=== PATIENT | female | born 1955 | race Caucasian/White ===

== ENCOUNTER 2017-05-11 09:46 | Day surgery (SDC) | payer OTHER ==
--- NOTE | 2017-04-30 20:32 | HP ---
CC: Dr. Dania Messina * ADMITTING HISTORY AND PHYSICAL: DATE OF ADMISSION: 05/11/17 ADMITTING DIAGNOSES: 1. Right renal calculus. 2. Right hydronephrosis. 3. 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 PLANNED PROCEDURE: Shockwave lithotripsy of right renal calculus, right retrograde, and right stent insertion. SURGEON: Jigar Castellanos MD HISTORY OF PRESENT ILLNESS: Lexie Casanova is a 62-year-old lady who I have been following for the last few years for what appears to be a partial right ureteropelvic junction obstruction. She was recently noted to have a 5-mm calculus in the area of the right ureteropelvic junction with mild right hydronephrosis. PAST MEDICAL HISTORY: Significant for: 1. History of high cholesterol. 2. Hypothyroidism. MEDICATIONS ON ADMISSION: 1. Pravastatin 20 mg a day. 2. Synthroid 0.125 mg daily. ALLERGIES: No known drug allergies. PHYSICAL EXAMINATION GENERAL: Reveals a pleasant healthy-appearing lady. VITAL SIGNS: Blood pressure is 120/80, pulse 77 per minute and regular, oxygen saturation 98% on room air. LUNGS: Clear bilaterally. CARDIOVASCULAR EXAM: Regular rate and rhythm. S1, S2. ABDOMEN: Soft with mild right flank tenderness. IMPRESSION: A 62-year-old lady with a partial right ureteropelvic junction obstruction and a 5-mm calculus in the right renal pelvis with mild right hydronephrosis. PLAN: Planned procedure is shockwave lithotripsy, right renal calculus, right retrograde and right stent insertion. [id number] #: [id number] MTDD
[~2017-05-11 09:46] MED LIST: Buffered Lidocaine 0.9% SYRIN* 5 ML/SYR SYRINGE INTRADERM ONE; Dexamethasone IV* 4 MG/ML 1 ML (4 MG) IV SLOW PU ONE; Famotidine IV* 10 MG/ML 2 ML (20 mg) IV ONE
[2017-05-11] MEDS ORDERED: cefTRIAXone(*) 2 GM ADDV.VIAL IVPB ONE (10:07)
[2017-05-11] MEDS ORDERED: Dexamethasone IV* 4 MG/ML 1 ML (4 MG) ONE (10:07)
[2017-05-11] MEDS ORDERED: Famotidine IV* 10 MG/ML 2 ML (20 mg) ONE (10:07)
[2017-05-11] MEDS ORDERED: Buffered Lidocaine 0.9% SYRIN* 5 ML/SYR SYRINGE ONE (10:08)
--- NOTE | 2017-05-11 10:17 | RAD ---
Indication: Preop. Flat plate of the abdomen demonstrates calcifications overlying the midportion of the right kidney. Left kidney is unremarkable. Compared to previous exam of April 24, 2017 this is unchanged. IMPRESSION: Calcification overlying the mid pole right kidney.
[2017-05-11] MEDS ORDERED: fentaNYL* 50 MCG/ML 2 ML VIAL (100 MCG VIAL) ONE ×2 (11:11→13:50)
[2017-05-11] MEDS ORDERED: Midazolam* 1 MG/ML 2 ML VIAL (2 MG) ONE (11:11)
[2017-05-11] MEDS ORDERED: Ondansetron INJ* 2 MG/ML VIAL ONE ×2 (11:18→12:22)
[2017-05-11] MEDS ORDERED: Iohexol 180 (CONTRAST) 10 ML SDV IV ONE (12:10)
[2017-05-11] MEDS ORDERED: EPHEDrine (Pressors)* 50 MG/ML VIAL ONE (12:22)
[2017-05-11] MEDS ORDERED: Propofol* 10 MG/ML 20 ML BTL IV PUSH ONE (12:22)
[2017-05-11] MEDS ORDERED: DiMENhydriNATE IV* 50 MG/ML VIAL IV PUSH PRN (12:39)
[2017-05-11] MEDS ORDERED: Naloxone* 0.4 MG/ML 1 ML VIAL IV PRN (12:39)
[2017-05-11] MEDS ORDERED: fentaNYL* 50 MCG/ML 2 ML VIAL (100 MCG VIAL) IV PRN (12:39)
[2017-05-11] MEDS ORDERED: oxyCODONE/Acetamin 5/325 MG* TAB ONE (14:27)
[2017-05-11 15:37] VITALS: BP 133/57
--- NOTE | 2017-05-12 06:31 | OP ---
CC: Dania Messina MD * DATE OF OPERATION: 05/11/17 - [facility] DATE OF : 55 SURGEON: Jigar Castellanos MD ANESTHESIOLOGIST: Dr. Perry. ANESTHESIA: General. PRE-OP DIAGNOSES: 1. Right hydronephrosis. 2. Right renal calculus. 3. Partial right ureteropelvic junction obstruction. POST-OP DIAGNOSES: 1. Right hydronephrosis. 2. Right renal calculus. 3. Partial right ureteropelvic junction obstruction. OPERATIVE PROCEDURE: 1. Shockwave lithotripsy, right renal calculus. 2. Cystoscopy, right retrograde pyelogram, right ureteral balloon dilatation and right stent insertion. INDICATIONS: Lexie Casanova is a 62-year-old lady who I had been following for what appears to be a partial right ureteropelvic junction obstruction. She was recently evaluated and noted to have a 5 mm calculus in the right renal pelvis and is now being brought in for management of both the renal calculus and the partial ureteropelvic junction obstruction. COMPLICATIONS: None. STENT USED: A 6-Brazilian stent, right ureter. OPERATIVE FINDINGS: 1. Right renal calculus. 2. Right hydronephrosis and dilated right renal pelvis with narrowing at the ureteropelvic junction. POSTOPERATIVE CONDITION: Stable. DESCRIPTION OF PROCEDURE: After induction of general anesthesia, the patient was placed on the lithotripsy table in supine position. The calculus in the renal pelvis was localized under fluoroscopy and shockwave lithotripsy was commenced at a rate of 90 shocks per minute. Periodic imaging revealed good localization and fragmentation and a total of 1800 shocks were delivered. Next, the patient was placed in dorsal lithotomy position, cystoscopy was performed. The bladder was examined and appeared unremarkable. Guidewire was introduced into the right ureter. Retrograde pyelogram revealed a significantly dilated right renal pelvis with narrowing at the ureteropelvic junction consistent with the diagnosis of partial ureteropelvic junction obstruction. The ureteropelvic junction was initially dilated by advancing an open-ended catheter over the guidewire and later on a balloon dilator was placed over the wire and the ureteropelvic junction was successfully balloon dilated. The balloon was then deflated and the balloon dilator removed and a 6- Brazilian stent was introduced and positioned under fluoroscopy with good proximal and distal positioning obtained. The patient tolerated the procedure satisfactorily and was transferred back to the recovery area in stable condition. [id number]/[facility] #: [id number] JESSI
== END 2017-05-11 15:33 | disposition home or self-care (01) ==
LOC: OR 09:46
PROVIDERS: ATTEND Urology
DX: N13.2 Hydronephrosis with renal and ureteral calculous obstruction (principal); N13.0 Hydronephrosis with ureteropelvic junction obstruction; E03.9 Hypothyroidism, unspecified; E78.00 Pure hypercholesterolemia, unspecified; Z68.36 Body mass index [BMI] 36.0-36.9, adult; R01.1 Cardiac murmur, unspecified; M19.90 Unspecified osteoarthritis, unspecified site
CPT/HCPCS: 74018; A9270-GY; C1876; J0696; J1100; J2250; J2405; J2704; J3010

== ENCOUNTER 2017-12-07 06:01 | Day surgery (SDC) | payer OTHER ==
--- NOTE | 2017-12-03 20:21 | HP ---
CC: Dania Messina MD * ADMITTING HISTORY AND PHYSICAL: DATE OF ADMISSION: 12/07/17 ADMITTING DIAGNOSES: 1. Right renal calculus. 2. Right hydronephrosis. 3. Partial right ureteropelvic junction obstruction. PLANNED PROCEDURE: Right stent insertion and shockwave lithotripsy of right renal calculus. SURGEON: Jigar Castellanos MD HISTORY OF PRESENT ILLNESS: Lexie Casanova is a 62-year-old lady with a history of partial right ureteropelvic junction obstruction. She had undergone right stent insertion and balloon dilatation of the right ureteropelvic junction in April 2017. She was recently seen in followup and was noted to have a 5-mm calculus in the renal pelvis with mild hydronephrosis and dilated renal pelvis. She is now being brought in for further evaluation and management of the same. PAST MEDICAL HISTORY: Significant for: 1. High cholesterol. 2. Hypothyroidism. MEDICATIONS ON ADMISSION: 1. Pravastatin 20 mg a day. 2. Levothyroxine 175 mcg a day. ALLERGIES: No known drug allergies. REVIEW OF SYSTEMS: She is otherwise in excellent health. There is no history of diabetes mellitus or any other major systemic illness. PHYSICAL EXAMINATION GENERAL: Reveals a pleasant healthy appearing middle-aged lady. VITAL SIGNS: Blood pressure is 122/80, pulse 74 per minute, oxygen saturation 98% on room air. LUNGS: Clear bilaterally. CARDIOVASCULAR: Regular rate and rhythm. S1, S2. ABDOMEN: Soft with mild right flank tenderness. IMPRESSION: A 62-year-old lady with partial right ureteropelvic junction obstruction who has a 5-mm calculus in the right renal pelvis with a dilated renal pelvis and mild right hydronephrosis. PLAN: Right stent insertion and shockwave lithotripsy of right renal calculus. [id number]/[facility] #: [id number] MTDD
[~2017-12-07 06:01] MED LIST changes: -Dexamethasone IV* 4 MG/ML 1 ML (4 MG) IV SLOW PU ONE; -Famotidine IV* 10 MG/ML 2 ML (20 mg) IV ONE
[2017-12-07] MEDS ORDERED: cefTRIAXone(*) 2 GM ADDV.VIAL IVPB ONE (06:08)
[2017-12-07] MEDS ORDERED: Iohexol 180 (CONTRAST) 10 ML SDV IV ONE (07:23)
[2017-12-07] MEDS ORDERED: fentaNYL* 50 MCG/ML 2 ML VIAL (100 MCG VIAL) ONE (07:29)
[2017-12-07] MEDS ORDERED: Midazolam* 1 MG/ML 2 ML VIAL (2 MG) ONE (07:29)
[2017-12-07] MEDS ORDERED: Propofol* 10 MG/ML 20 ML BTL IV PUSH ONE (07:29)
[2017-12-07] MEDS ORDERED: EPHEDrine (Pressors)* 50 MG/ML VIAL ONE (07:57)
--- NOTE | 2017-12-07 08:03 | RAD ---
INDICATION: Preoperative x-ray prior to right renal calculus treatment COMPARISON: The most recent KUB is dated November 13, 2017 TECHNIQUE: 2 views the abdomen were obtained. FINDINGS: There are no acute bony or soft tissue abnormalities. The bowel gas pattern is normal. There is a moderate amount of stool overlying the renal shadows. There are no obvious coarse calcifications overlying the expected location of the bilateral collecting systems or ureters. IMPRESSION:Normal KUB.
[2017-12-07] MEDS ORDERED: Furosemide IV* 10 MG/ML 2 ML VIAL (20 MG) ONE (08:13)
[2017-12-07] MEDS ORDERED: Ondansetron INJ* 2 MG/ML VIAL IV PRN (08:26)
[2017-12-07] MEDS ORDERED: fentaNYL* 50 MCG/ML 2 ML VIAL (100 MCG VIAL) IV PRN (08:26)
[2017-12-07] MEDS ORDERED: oxyCODONE/Acetamin 5/325 MG* TAB PO PRN (08:26)
[2017-12-07] MEDS ORDERED: Naloxone* 0.4 MG/ML 1 ML VIAL IV PRN (08:26)
[2017-12-07 09:01] VITALS: BP 134/73
--- NOTE | 2017-12-07 15:10 | OP ---
CC: Dr. Dania Messina * DATE OF OPERATION: 12/07/17 - [facility] DATE OF : 55 SURGEON: Dr. Castellanos ANESTHESIOLOGIST: Dr. Rush ANESTHESIA: General. PRE-OP DIAGNOSES: 1. Right renal calculus. 2. Right hydronephrosis. 3. Partial right ureteropelvic junction obstruction. POST-OP DIAGNOSES: 1. Right renal calculus. 2. Right hydronephrosis. 3. Partial right ureteropelvic junction obstruction. OPERATIVE PROCEDURE: 1. Shock wave lithotripsy of right renal calculus. 2. Cystoscopy right retrograde pyelogram. 3. Right ureteral dilatation and right stent insertion. COMPLICATIONS: None. POSTOPERATIVE CONDITION: Stable. STENT USED: 7-Latvian stent right ureter. OPERATIVE FINDINGS: 1. Right renal calculus. 2. Dilated right renal pelvis with narrowing at ureteropelvic junction obstruction consistent with partial UPJ obstruction. POSTOPERATIVE CONDITION: Stable. INDICATIONS: Lexie Casanova is a 62-year-old lady with a history of partial right ureteropelvic junction obstruction and a right renal calculus. DESCRIPTION OF PROCEDURE: After induction of general anesthesia, the patient was placed on the lithotripsy table in supine position. The calculus, which could not be seen on the initial x-ray due to overlying bowel contents was visualized on fluoroscopy. Shockwave lithotripsy was commenced at a rate of 60 shocks per minute after the initial 300 shocks, there was a pause in lithotripsy for several minutes in an effort to minimize any potential trauma to the kidney. Lithotripsy was then resumed and a total of 1600 shocks were delivered. Next, the patient was placed in dorsal lithotomy position, cystoscopy was performed. Right retrograde pyelogram revealed a dilated right renal pelvis with narrowing at the ureteropelvic junction. The ureter and the ureteropelvic junction were carefully dilated first to 5-Latvian and then to 8-Latvian. Once this was done, a 7-Latvian stent was introduced and positioned under fluoroscopy with good proximal and distal positioning obtained. My plan is to allow the stent to stay in for 2 to 3 weeks to allow for more passive dilatation of the ureteropelvic junction. The bladder was emptied. The patient tolerated the procedure satisfactorily and was transferred back to the recovery area in stable condition. [id number]/[facility] #: [id number] [facility]
== END 2017-12-07 10:41 | disposition home or self-care (01) ==
LOC: OR 06:01
PROVIDERS: ATTEND Urology
DX: N13.2 Hydronephrosis with renal and ureteral calculous obstruction (principal); N13.1 Hydronephrosis with ureteral stricture, not elsewhere classified; E78.00 Pure hypercholesterolemia, unspecified; E03.9 Hypothyroidism, unspecified
CPT/HCPCS: 74018; C1876; J0696; J1940; J2250; J2704; J3010

== ENCOUNTER 2019-06-09 14:33 | Observation (INO) | payer OTHER ==
--- NOTE | 2019-05-30 11:33 | HP ---
HISTORY AND PHYSICAL: DATE OF ADMISSION/SURGERY: 06/09/19 DATE OF OFFICE VISIT: 05/25/19 SURGEON: Priyanka Mclain MD * (DICTATED BY LIZETT JAMIL) PROCEDURE: Left total knee arthroplasty. CHIEF COMPLAINT: Left knee pain. HISTORY OF PRESENT ILLNESS: Ms. Casanova is a 64-year-old female with end-stage osteoarthritis of the left knee. She has failed conservative treatment and elected to proceed with a left total knee arthroplasty. PAST MEDICAL HISTORY: Hypothyroidism and a stent in her right kidney. PAST SURGICAL HISTORY: x2, right total knee arthroplasty, right carpal tunnel release, right foot surgery, laparoscopy, bilateral finger fusions , and stent placement of the right kidney. CURRENT MEDICATIONS: 1. Turmeric. 2. Pravastatin sodium 20 mg q.h.s. 3. Vitamin D3. 4. Collagen. 5. Vitamin C. 6. Levothyroxine 125 mcg a day. 7. Liothyronine 5 mcg 3 times a day. 8. Inositol 100 mg. 9. Women's Multivitamin. ALLERGIES: To TAPE. FAMILY HISTORY: Diabetes and cancer. SOCIAL HISTORY: She is a 64-year-old female. She lives with her spouse. She does not smoke. REVIEW OF SYSTEMS: A complete 14-point review of systems was reviewed with the patient. It was all negative or noncontributory. She denies history of DVT, PE , hepatitis, HIV, or anesthesia problems. PHYSICAL EXAMINATION GENERAL: She is well developed, well nourished, in no acute distress. VITAL SIGNS: She stands 63-1/2 inches tall, weighs 202 pounds. Her blood pressure is 132/78, her heart rate is 72. HEENT: Normocephalic, atraumatic. NECK: Supple. No palpable lymph nodes. PULMONARY: The lungs are clear to auscultation bilaterally. CARDIO: Regular rate and rhythm. Strong S1, S2. ABDOMEN: Soft, nontender, nondistended. NEUROLOGICAL: She is alert and oriented x3. MUSCULOSKELETAL: Left lower extremity: The skin is intact. There are no open wounds or abrasions. There is a moderate effusion of the left knee joint, some tenderness along the medial and lateral joint line. Range of motion is 5 to 120 degrees of flexion with patellofemoral crepitus. She is able to dorsiflex and plantarflex, has a 2+ dorsalis pedis pulse and intact sensation. ASSESSMENT AND PLAN: Ms. Casanova is a 64-year-old female with end-stage osteoarthritis of the left knee. She has failed conservative treatment and elected to proceed with a left total knee arthroplasty. The surgery is scheduled for 06/09/[address] Mclain discussed the risks and benefits of the surgery at today's visit and all of her questions were answered. She will follow up with Dr. Mclain 2 weeks after the surgery. LIZETT JAMIL [id number]/[facility] #: [id number] JESSI
[~2019-06-09 14:33] MED LIST changes: +Acetaminophen TAB* 325 MG PO ONE; -Buffered Lidocaine 0.9% SYRIN* 5 ML/SYR SYRINGE INTRADERM ONE; +Buffered Lidocaine 1% SYRIN* 1 ML/SYRINGE INTRADERM ONE; +Dexamethasone TAB* 4 MG PO ONE; +Famotidine IV* 10 MG/ML 2 ML (20 mg) IV ONE; +Gabapentin CAP(*) 300 MG PO ONE; +Lactated Ringers 1000 ML Bag* 1,000 ML IV SCH; +Ondansetron ODT TAB* 4 MG PO ONE; +Tranexamic Acid 1,000 MG in NS 0.9% 50 ML IV ONE; +celeCOXIB CAP* 200 MG PO ONE
[2019-06-09] MEDS ORDERED: Gabapentin CAP(*) 300 MG ONE (14:45)
[2019-06-09] MEDS ORDERED: Acetaminophen TAB* 325 MG ONE (14:45)
[2019-06-09] MEDS ORDERED: Buffered Lidocaine 1% SYRIN* 1 ML/SYRINGE INTRADERM ONE (14:46)
[2019-06-09] MEDS ORDERED: ceFAZolin 2 GM in NS PREMIX(*) 2 GM/100 ML BAG IVPB ONE (14:46)
[2019-06-09] MEDS ORDERED: celeCOXIB CAP* 200 MG ONE (14:46)
[2019-06-09] MEDS ORDERED: Midazolam* 1 MG/ML 2 ML VIAL (2 MG) ONE (15:58)
[2019-06-09] MEDS ORDERED: Bupivacaine 0.5% SDV PF* 30ML VIAL ONE (15:58)
[2019-06-09] MEDS ORDERED: Dexmedetomidine* 200 MCG/2 ML 2 ML VIAL ONE (15:58)
[2019-06-09] MEDS ORDERED: Lidocaine 2% PF * 5 ML VIAL ONE ×2 (15:58→16:42)
[2019-06-09] MEDS ORDERED: ROPIVACAINE 5 MG/ML 30 ML BTL (0.5%) ONE ×2 (15:58→16:44)
[2019-06-09] MEDS ORDERED: Propofol* 10 MG/ML 20 ML BTL ONE ×2 (16:42)
[2019-06-09] MEDS ORDERED: Phenylephrine 40 MCG/ML SYRINGE ONE ×3 (16:42→18:19)
[2019-06-09] MEDS ORDERED: KETAMINE HCL* 50 MG/ML 10 ML VIAL ONE (16:43)
[2019-06-09] MEDS ORDERED: Dexamethasone IV* 4 MG/ML 1 ML (4 MG) ONE (16:49)
[2019-06-09] MEDS ORDERED: Metoclopramide IV* 5 MG/ML 2 ML VIAL IV PRN (18:26)
[2019-06-09] MEDS ORDERED: oxyCODONE TAB* 5 MG TAB PO PRN (18:26)
[2019-06-09] MEDS ORDERED: fentaNYL* 50 MCG/ML 2 ML VIAL (100 MCG VIAL) IV PRN (18:26)
[2019-06-09] MEDS ORDERED: Naloxone* 0.4 MG/ML 1 ML VIAL IV PRN (18:26)
[2019-06-09] MEDS ORDERED: diPHENhydraMINE PO* 25 MG PO PRN (18:42)
[2019-06-09] MEDS ORDERED: oxyCODONE/Acetamin 5/325 MG* TAB PO PRN (18:42)
[2019-06-09] MEDS ORDERED: Magnesium Hydroxide LIQ* 30 ML UDC PO PRN (18:42)
[2019-06-09] MEDS ORDERED: Acetaminophen TAB* 325 MG PO PRN (18:42)
[2019-06-09] MEDS ORDERED: diPHENhydraMINE IV* 50 MG/ML 1 ml VIAL (BENADRYL) IV PRN (18:42)
[2019-06-09] MEDS ORDERED: Ondansetron ODT TAB* 4 MG PO PRN (18:42)
[2019-06-09] MEDS ORDERED: Morphine INJ* 2 MG/ML 1 ML SYRINGE (TWO MG - NEW SYRINGE VERSION) IV PRN (18:42)
[2019-06-09] MEDS ORDERED: Cyclobenzaprine TAB* 10 MG PO PRN (18:42)
[2019-06-09] MEDS ORDERED: Ondansetron INJ* 2 MG/ML VIAL IV PRN (18:42)
--- NOTE | 2019-06-09 20:03 | OP ---
Operative Report - Blank - Operative Report Date of Operation: 06/09/19 Note: LIZY CORONADO 1955 Date of Surgery: 06/09/19 Priyanka Mclain MD Hauling Contractor: Johan PHOENIX did help throughout the procedure with preparation of the knee, wound retraction, manipulation of the knee, and wound closure. Anesthesiologist: Dr. Dennis Anesthesia Type: General Preoperative Diagnosis: Left severe degenerative osteoarthritis of the knee Postoperative Diagnosis: As above Procedure Performed: Left Total Knee Arthroplasty Tourniquet time: 48 minutes Complications: None Specimen: Bone and cartilage from the left knee joint sent to pathology. Hardware Used: Cemented Rueda and Nephew total knee hardware was used - For the femur a size 6 narrow oxinium left legion posterior stabilized femoral component , for the tibia a size 5 left ole II tibial baseplate, for the insert a size 11mm 5-6 posterior stabilized articular polyethylene insert, and for the patella a size 32 3-peg all poly patella. Brief History/Indication: LIZY CORONADO was known in clinic and had a history of severe left knee pain and swelling. She failed conservative treatment with anti-inflammatories, pain pills, intra-articular injections and physical therapy. She elected to undergo left total knee arthroplasty due to continued pain and decreased quality of life. Radiographs showed severe end stage osteoarthritis of the knee with bone on bone contact. Informed consent was obtained from the patient. She understood the risks of surgery included but were not limited to: bleeding, infection, damage to nearby structures, intraoperative fracture, nerve palsy, failure of the hardware, early loosening, knee stiffness or loss of motion, anesthesia complications, stroke, heart attack , blood clot and . She wished to proceed. Intra-Operative Findings: Intraoperatively the patient was noted to have severe loss of cartilage in all 3 compartments of the knee. Description of the Procedure: LIZY CORONADO was identified in the preanesthesia unit. Her left knee was marked as the correct operative side. Informed consent was signed and placed in the chart. The patient was taken to the operating room and placed under anesthesia without complication. A marie catheter was placed. A tourniquet was placed on the left thigh. The left lower extremity was prepped and draped in the usual sterile fashion. Preoperative time-out was made to correctly identify the patient, side and site. Appropriate intraoperative antibiotics were given within one hour of incision. Tourniquet was inflated. A midline incision was made and carried sharply down to the extensor mechanism. A new 10 blade was used to make a standard medial parapatellar arthrotomy. The patella was subluxed laterally. Electrocautery was used to dissect soft tissue off the superomedial tibia to the midsagittal plane. The knee was flexed up. The anterior horn of the lateral meniscus and the ACL were sharply incised. A drill was used to enter the distal femur. The intramedullary distal femoral cutting guide was pinned on the distal femur. The oscillating saw was used to make the distal femoral cut. The external rotation guide was pinned on the distal femur and the distal femur was sized to a size 6. The size 6 multi-cutting jig was pinned on the distal femur. The oscillating saw was used to make the appropriate 4 chamfer cuts. Next the PCL was completely released. The extramedullary tibial cutting guide was pinned on the proximal tibia and the oscillating saw was used to make the proximal tibial cut perpendicular to the mechanical axis of the tibia. The bone was carefully removed. The knee was brought out into full extension. The spacer block was placed and had excellent fit with the knee in full extension. The medial and lateral ligaments were well balanced. The flexion and extension gaps were well balanced. The knee was flexed up. Lamina order desk clerk was placed both medially and laterally. Any remaining meniscus was removed with electrocautery. Curved osteotome was used to remove any posterior osteophytes. The tibial tray and drop ignacia were placed and confirmed a satisfactory tibial cut. The size 6 left narrow femoral trial was impacted onto the distal femur. This trial had excellent fit and stability. The box for the posterior stabilized implant was prepared using a box cut osteotome and a reamer. Next a tibial tray trial and 9 mm insert trial was placed. The knee was taken through a range of motion and had full extension to 130 degrees of flexion. Patellofemoral tracking was satisfactory. The patella was inverted and sized to a size 32. Three peg holes were drilled through the size 32 drill guide. The trial patella was placed and the knee was taken through a range of motion. There was satisfactory patellofemoral tracking. All trials were removed. The tibia was subluxed anteriorly and sized to a size 5. The proximal tibial was prepared with a size 5 keel punch. All bony cut surfaces were irrigated with sterile saline and dried. Final implants were cemented into place starting with the tibia, followed by the femur, and last the patella. A 11 mm insert trial was placed and the knee was brought into full extension. Tourniquet was turned down and the knee was copiously irrigated with sterile saline. Electrocautery was used to obtain meticulous hemostasis. Once the cement had fully cured, the insert trial was removed. Any excess cement was removed from around the hardware and capsule. Final insert chosen was a 11 mm posterior stabilized Ole II articular insert size 5-6. Stability of the insert was checked and noted to be stable. The extensor mechanism was closed using number 1 vicryls. The rest of the incision was closed in a layered fashion using 0 and 2-0 vicryls. The skin was closed using 3-0 nylon suture. Sterile xeroform, 4x4s and webril were used to cover the incision. Armaan wrap and cold pack were used to cover the dressings. The patients anesthesia was reversed without difficulty. She was taken to the PACU in stable condition. Intended weight-bearing will be as tolerated.
[2019-06-09] MEDS: Lactated Ringers 1000 ML Bag* 1,000 ML IV SCH (21:16)
[2019-06-09] MEDS ORDERED: Liothyronine TAB* 5 MCG PO SCH (22:30)
[2019-06-09] MEDS: Liothyronine TAB* 5 MCG PO SCH (23:42)
[2019-06-09] MEDS: Magnesium Hydroxide LIQ* 30 ML UDC PO SCH (23:44)
[2019-06-09] MEDS: Docusate CAP* 100 MG PO SCH (23:44)
[2019-06-10] MEDS: ceFAZolin 1 GM ADVAN(*) 1 GM in NS 0.9% 50 ML* 50 ML IVPB SCH ×3 (00:25→16:03)
[2019-06-10] MEDS: oxyCODONE TAB* 5 MG TAB PO PRN ×4 (02:16→15:02)
[2019-06-10] MEDS: oxyCODONE/Acetamin 5/325 MG* TAB PO PRN ×4 (04:27→16:08)
[2019-06-10 05:32] LABS: Hematocrit 36 % (35-47); Hemoglobin 12.6 g/dL (12.0-16.0); Mean Platelet Volume 8.4 fL (7.4-10.4); Platelet Count 283 10^3/uL (150-450)
[2019-06-10 05:46] LABS: BUN/Creatinine Ratio 22.2 (8-20); Calcium 8.9 mg/dL (8.6-10.3); EGFR African American 137.5 (>60); EGFR Non-African American 113.7 (>60); Potassium 4.1 mmol/L (3.5-5.0)
[2019-06-10] MEDS ORDERED: Levothyroxine TAB* 125 MCG TAB PO SCH (06:00)
[2019-06-10] MEDS: Liothyronine TAB* 5 MCG PO SCH ×2 (06:22→13:22)
[2019-06-10] MEDS: Lactated Ringers 1000 ML Bag* 1,000 ML IV SCH (06:56)
[2019-06-10] MEDS: Magnesium Hydroxide LIQ* 30 ML UDC PO SCH (08:32)
[2019-06-10] MEDS: Docusate CAP* 100 MG PO SCH (08:32)
[2019-06-10] MEDS ORDERED: Vitamin THERAPEUTIC TAB PO SCH (09:00)
[2019-06-10] MEDS ORDERED: Apixaban* 2.5 MG TAB PO SCH (09:00)
[2019-06-10 12:46] VITALS: BP 117/58
--- NOTE | 2019-06-10 13:35 | DS ---
Orthopedic Discharge Summary - Discharge Summary Date of Admission:06/09/19 Date of Discharge: 06/10/2019 Date of Surgery: 06/09/2019 Attending Orthopedic Provider: Dr. Mclain Pre-operative Diagnosis: Left knee osteoarthritis Operative Procedure: Left total knee arthroplasty Disposition of Patient HOME Home care vs Outpatient services Condition of Patient: Good Pain medication RX at discharge: Percocet 5/325 DVT prophylaxis RX at discharge: Eliquis 2.5mg bid History: LIZY CORONADO is a 64 year old F with years of increasingly severe left knee pain. Patient has failed conservative management and has elected to undergo a left total knee replacement Hospital Course: LIZY was admitted to [facility] on 06/09/19. Patient underwent a left total knee arthroplasty without complication followed by a brief recovery in PACU and transfer to the Short Stay Surgical Unit in stable condition. Our hospitalist service, physical therapy and occupational therapy also participated in this patients care. Post-op day 1: patient was alert and in no acute distress. Dressing was clean, dry and intact. Operative extremity dorsiflexion and plantarflexion intact, sensation intact to light touch distally, DP2+. Dressing was changed, incision was clean, dry and intact. Patient was deemed to be medically and orthopedically stable for discharge. Physical therapy goals were met. Home Medications Medication Instructions Recorded Confirmed Type Levothyroxine TAB* [Synthroid 150 125 mcg PO QAM 12/07/12 06/09/19 History MCG TAB*] Ascorbic Acid Vitamin C 1,000 mg PO QAM 05/25/19 06/09/19 History Collagen Protein 3 tbsp PO 1200 05/25/19 History Liothyronine Sodium [Cytomel] 5 mcg PO TID 05/25/19 06/09/19 History Multivitamin [Multivitamins] 1 tab PO TID 05/25/19 06/09/19 History Mirza-Inositol 700 mg PO 1200 05/25/19 History Turmeric Root Extract [Ra Turmeric] 1,000 mg PO QAM 05/25/19 06/09/19 History Discharge Instructions following Orthopedic Surgery: Activity: * Weight Bearing as tolerated * Continue physical therapy and occupational therapy exercises as shown * If you have elected to have home physical therapy, continue therapy exercises at home. If you have elected outpatient physical therapy, please start therapy as an outpatient right away. Wound care: * OK to shower on post-op day 3, no bathing, swimming, or submerging wound. * Use gentle soap, pat dry. Cover with gauze, GEORGINA wrap or tape. * If you elected to have a visiting home nurse, they will perform wound checks. Call Orthopedic office for: * Increased drainage * Redness * Increased pain * Fever Go to ER with shortness of breath or chest pain. Diet: * Regular diet * Increase fluids and fiber to prevent constipation. * Continue to use stool softeners, call office if no bowel motion within 48 hours. Medications See Home Medication List in your packet for medications that you should take after discharge. DVT Prophylaxis: Eliquis Dosin.5 mg, 1 tab every 12 hours x 30 days Pain Control: Percocet 5/325 mg 1 tab for moderate pain and 2 tabs for severe pain by mouth every 4 hours as needed. Maximum of 10 tabs per day. Hold for sedation , wean off as soon as pain allows Please note that Percocet contains Tylenol (acetaminophen). Maximum daily dose of Tylenol is 4000 mg from all sources. Antibiotics are required prior to any dental work. FOLLOW UP: Follow up with Dr. Mclain Within 10 - 14 days, call for appointment Please call our office with any questions or concerns ([phone])
== END 2019-06-10 17:00 | disposition home or self-care (01) ==
LOC: OR 14:33 → INTOOBSV 18:43 → SSU 18:43
PROVIDERS: ADMIT Physician Assistant; ATTEND Orthopaedic Surgery Adult Reconstructive Orthopaedic Surgery
DX: M17.12 Unilateral primary osteoarthritis, left knee (principal); M25.462 Effusion, left knee; M25.562 Pain in left knee; F32.9 Major depressive disorder, single episode, unspecified; E53.9 Vitamin B deficiency, unspecified; E03.9 Hypothyroidism, unspecified; Z79.890 Hormone replacement therapy; Z79.899 Other long term (current) drug therapy; Z87.442 Personal history of urinary calculi
CPT/HCPCS: 36415; 80048; 85014; 85018; 85049; 86850; 86900; 86901; A9270-GY; G0378; J0690; J1100; J2250; J2704; J2795; J3490